=== PATIENT | male | born 1960 | race African-American/Black ===

== ENCOUNTER 2024-05-02 16:01 | Emergency (ER) | payer OTHER ==
[~2024-05-02] VITALS: Ht 182.9 cm; Wt 51.5 kg
[2024-05-02 16:12] VITALS: TEMP 98.2
[2024-05-02] MEDS: LORazepam 2 MG/ML VIAL IVP ONE (16:45)
[2024-05-02 16:56] LABS: AMMONIA 10 umol/L (11-32)
[2024-05-02 16:57] LABS: PH,URINE DRUG SCREEN 7.5 (5.0-8.0)
[2024-05-02 16:57] LABS: TROPONIN I-HIGH SENSITIVITY Less Than 4 ng/L (<76)
[2024-05-02 17:00] LABS: AMPHET/METH SCREEN,URINE NEGATIVE (NEGATIVE); BARBITURATE SCREEN, URINE NEGATIVE (NEGATIVE); BENZODIAZEPINES SCREEN,URINE NEGATIVE (NEGATIVE); CANNABINOID SCREEN,URINE POSITIVE (NEGATIVE); COCAINE SCREEN,URINE POSITIVE (NEGATIVE); METHADONE SCREEN, URINE NEGATIVE (NEGATIVE); OPIATE SCREEN,URINE NEGATIVE (NEGATIVE); PHENCYCLIDINE SCREEN,URINE NEGATIVE (NEGATIVE)
[2024-05-02 17:03] LABS: ALCOHOL, URINE DRUG SCREEN POSITIVE (NEGATIVE)
[2024-05-02 17:06] LABS: PROTHROMBIN TIME 10.7 SEC (9.4-11.6)
[2024-05-02 17:43] LABS: BASOPHILS % (AUTO) 0.6 % (0.0-2.0); EOSINOPHILS % (AUTO) 1.3 % (1.0-6.0); HEMATOCRIT 41.4 % (41-53); HEMOGLOBIN 14.1 g/dL (13.5-17.5); LYMPHOCYTES % (AUTO) 41.5 % (22.0-44.0); MEAN CORPUSCULAR HEMOGLOBIN 33.5 pg (26.0-34.0); MEAN CORPUSCULAR VOLUME 99 fL (80-100); MONOCYTES # (AUTO) 0.5 K/uL (0.1-1.0); MONOCYTES % (AUTO) 7.1 % (2.0-9.0); NEUTROPHILS # (AUTO) 3.5 K/uL (1.8-7.7); NEUTROPHILS % (AUTO) 49.5 % (40.0-70.0); PLATELET COUNT (AUTO) 277 K/uL (150-450); WHITE BLOOD COUNT (AUTO) 7.1 K/uL (4.5-11.0)
[2024-05-02 17:51] LABS: ANION GAP 12 mmol/L (8-16); CALCIUM, TOTAL 9.2 mg/dL (8.8-10.5); CARBON DIOXIDE 27 mmol/L (22-29); CHLORIDE 101 mmol/L (98-107); CREATININE 0.98 mg/dL (0.60-1.30); GLOMERULAR FILTR. RATE CALC > 60 mL/min (>60); GLUCOSE,RANDOM 77 mg/dL (70-110); POTASSIUM 3.7 mmol/L (3.5-5.1); SODIUM SERUM 140 mmol/L (136-145); UREA NITROGEN, BLOOD 10 mg/dL (7-18)
[2024-05-02 18:14] LABS: ALANINE AMINOTRANSFERASE 17 U/L (12-78); ALBUMIN 3.9 g/dL (3.4-5.0); ALKALINE PHOSPHATASE 74 U/L (46-116); ASPARTATE AMINOTRANSFERASE 23 U/L (15-37); BILIRUBIN,TOTAL 0.5 mg/dL (0.1-1.0); CREATINE KINASE, TOTAL ONLY 89 U/L (39-308); TOTAL PROTEIN, SERUM 8.6 g/dL (6.4-8.2)
[2024-05-02 18:26] LABS: B-TYPE NATRIURETIC PEPTIDE 11 pg/mL (0-100)
[2024-05-03 01:20] VITALS: BP 140/61; PULSE 98; RESP 20; O2SAT 98
== END 2024-05-03 01:33 | disposition home or self-care (01) ==
LOC: EMS 16:01
DX: F10.129 Alcohol abuse with intoxication, unspecified (principal); F14.10 Cocaine abuse, uncomplicated; R45.1 Restlessness and agitation; R44.0 Auditory hallucinations; R73.9 Hyperglycemia, unspecified
CPT/HCPCS: 99285; 96374; 70450; 71045; 80048; 80076; 82140; 82550; 82962; 83880; 84484; 85025; 85610; 36415; 93005; 80307; G0480; J2060